=== PATIENT | male | born 1985 | race Caucasian/White ===

== ENCOUNTER 2018-05-11 15:40 | Emergency (ER) | payer OTHER ==
--- NOTE | 2018-05-11 17:01 | ER ---
Nurse's Notes [facility] Name: Manoj Jensen Jr Age: 32 yrs Sex: Male : 1985 Arrival Date: 05/11/2018 Time: 15:43 Bed Treatment Private MD: None, None Diagnosis: Pain in right knee Presentation: 05/11 16:28 Presenting complaint: Patient states: Right knee pain x 10 days, had x-rays done here 2 jl7 days and needs to know what the results are. Transition of care: patient was not received from another setting of care. Onset of symptoms was April 30, 2018. Risk Assessment: Do you want to hurt yourself or someone else? Patient reports no desire to harm self or others. Initial Sepsis Screen: Does the patient meet any 2 criteria? No. Patient's initial sepsis screen is negative. Does the patient have a suspected source of infection? No. Patient's initial sepsis screen is negative. Care prior to arrival: None. 16:28 Method Of Arrival: Ambulatory [facility] 16:28 Acuity: LUIS EDUARDO 4 jl7 Triage Assessment: 16:31 General: Appears in no apparent distress. uncomfortable, Behavior is calm, cooperative, jl7 appropriate for age. Pain: Complains of pain in right knee Pain does not radiate. Pain currently is 3 out of 10 on a pain scale. Historical: - Allergies: 16:31 No Known Allergies; jl7 - Home Meds: 16:31 Lisinopril Oral [Active]; jl7 - PMHx: 16:31 Hypertension; jl7 - PSHx: 16:31 right knee; jl7 - Immunization history:: Adult Immunizations up to date. - Social history:: Smoking status: Patient uses tobacco products, smokes one pack cigarettes per day. - Ebola Screening: : No symptoms or risks identified at this time. Screenin:59 Abuse screen: Denies threats or abuse. Denies injuries from another. Nutritional iw screening: No deficits noted. Tuberculosis screening: No symptoms or risk factors identified. Fall Risk None identified. Assessment: 16:35 General: Appears in no apparent distress. Behavior is calm, cooperative. Neuro: Level iw of Consciousness is awake, alert, obeys commands. Vital Signs: 16:31 BP 128 / 81; Pulse 78; Resp 16 S; Temp 98.8(O); Pulse Ox 97% on R/A; Weight 125.65 kg jl7 (R); Height 5 ft. 8 in. (172.72 cm) (R); Pain 3/10; 16:31 Body Mass Index 42.12 (125.65 kg, 172.72 cm) jl7 ED Course: 15:43 Patient arrived in ED. mr 15:43 None, None is Private Physician. mr 16:30 Triage completed. jl7 16:31 Arm band placed on left wrist. jl7 16:42 Nataliya Capps, RN is Primary Nurse. iw 16:45 Murray Colon PA is PHCP. cp 16:45 Smith Aburto MD is Attending Physician. cp 16:59 No provider procedures requiring assistance completed. Patient did not have IV access iw during this emergency room visit. 17:00 Kade Quiroga MD is Referral Physician. cp 17:00 Patient has correct armband on for positive identification. iw Administered Medications: No medications were administered Outcome: 16:59 Medical screen evaluation completed per provider. Patient declined treatment. iw 16:59 Following a medical screening exam, the patient was provided information regarding iw alternative care sites and resources available per registration personnel. 16:59 Condition: good iw 17:00 Discharge ordered by . cp 17:15 Patient left the ED. iw Signatures: Shivani Chacon mr Nataliya Capps, RN RN iw Murray Colon PA PA cp Leal, Jahala, RN RN jl7
--- NOTE | 2018-05-11 17:01 | EDPHYS ---
Physician Documentation [facility] Name: Manoj Jensen Jr Age: 32 yrs Sex: Male : 1985 Arrival Date: 05/11/2018 Time: 15:43 Bed Treatment Private MD: None, None ED Physician Smith Aburto HPI: 05/11 16:53 This 32 yrs old Male presents to ER via Ambulatory with complaints of Knee cp Pain. 16:54 The patient presents with pain, that is chronic. The complaints affect the medial cp aspect of right knee. Onset: The symptoms/episode began/occurred gradually, and became worse 10 day(s) ago. Modifying factors: the symptoms are aggravated by weight bearing. Associated signs and symptoms: Pertinent negatives calf tenderness, fever, numbness, swelling, warmth. Patient reports having xrays performed 2 days ago that were ordered by DR Copeland. Historical: - Allergies: 16:31 No Known Allergies; jl7 - Home Meds: 16:31 Lisinopril Oral [Active]; jl7 - PMHx: 16:31 Hypertension; jl7 - PSHx: 16:31 right knee; jl7 - Immunization history:: Adult Immunizations up to date. - Social history:: Smoking status: Patient uses tobacco products, smokes one pack cigarettes per day. - Ebola Screening: : No symptoms or risks identified at this time. ROS: 16:55 Eyes: Negative for injury, pain, redness, and discharge. cp 16:55 Constitutional: Negative for body aches, chills, fever, poor PO intake. 16:55 ENT: Negative for drainage from ear(s), ear pain, sore throat, difficulty swallowing, difficulty handling secretions. 16:55 Cardiovascular: Negative for chest pain, edema. 16:55 Respiratory: Negative for cough, shortness of breath, wheezing. 16:55 Abdomen/GI: Negative for abdominal pain, nausea, vomiting, and diarrhea. 16:55 Back: Negative for pain at rest, pain with movement, radiated pain. 16:55 MS/extremity: Positive for pain, tenderness, of the medial aspect of right knee. 16:55 Skin: Negative for cellulitis, rash. 16:55 All other systems are negative. Exam: 16:57 Head/Face: Normocephalic, atraumatic. cp 16:57 Constitutional: The patient appears in no acute distress, alert, awake, non-toxic, well developed, well nourished, obese. 16:57 Eyes: Periorbital structures: appear normal, Conjunctiva: normal, no exudate, no injection, Lids and lashes: appear normal, bilaterally. 16:57 ENT: External ear(s): are unremarkable, Nose: is normal, Mouth: Lips: moist, Oral mucosa: moist, Voice: is normal. 16:57 Chest/axilla: Inspection: normal. 16:57 Cardiovascular: Rate: normal. 16:57 Respiratory: the patient does not display signs of respiratory distress, Respirations: normal, no use of accessory muscles, no retractions, no splinting, no tachypnea. 16:57 Abdomen/GI: Exam negative for discomfort, distension, guarding, Inspection: obese 16:57 Back: pain, is absent, ROM is normal. 16:57 Musculoskeletal/extremity: Extremities: grossly normal except: noted in the medial aspect of right knee: pain, There is no evidence of decreased ROM, deformity, swelling, DVT Exam: no pain, no erythema, no increased warmth. 16:57 Skin: cellulitis, is not appreciated, no rash present. Vital Signs: 16:31 BP 128 / 81; Pulse 78; Resp 16 S; Temp 98.8(O); Pulse Ox 97% on R/A; Weight 125.65 kg jl7 (R); Height 5 ft. 8 in. (172.72 cm) (R); Pain 3/10; 16:31 Body Mass Index 42.12 (125.65 kg, 172.72 cm) jl7 MDM: 16:45 Patient medically screened. cp 16:45 Differential diagnosis: dislocation, closed fracture, tendonitis. cp 17:00 Data reviewed: vital signs, nurses notes, and as a result, I will discharge patient. cp Administered Medications: No medications were administered Disposition: 05/12 07:12 Co-signature as Attending Physician, Smith Aburto MD. rn Disposition: 05/11/18 17:00 Discharged to Home as Medical Screen. Impression: Pain in right knee. - Condition is Stable. - Medication Reconciliation Form, Thank You Letter, Antibiotic Education, Prescription Opioid Use form. - Follow up: Kade Quiroga MD; When: 2 - 3 days; Reason: Recheck today's complaints. - Problem is an ongoing problem. - Symptoms are unchanged. Signatures: Nataliya Capps RN RN iw Smith Aburto MD MD rn Page, Corey, PA PA cp Carolann Calderón RN RN jl7 Corrections: (The following items were deleted from the chart) 05/11 17:15 17:00 05/11/2018 17:00 Discharged to Home as Medical Screen. Impression: Pain in right iw knee. Condition is Stable. Forms are Medication Reconciliation Form, Thank You Letter, Antibiotic Education, Prescription Opioid Use. Follow up: Kade Quiroga; When: 2 - 3 days; Reason: Recheck today's complaints. Problem is an ongoing problem. Symptoms are unchanged. cp
== END 2018-05-11 17:15 | disposition home or self-care (01) ==
LOC: ER 15:40
DX: M25.561 Pain in right knee (principal); F17.210 Nicotine dependence, cigarettes, uncomplicated
CPT/HCPCS: 99281

== ENCOUNTER 2020-03-17 05:33 | Emergency (ER) | payer OTHER ==
[2020-03-17 07:09] VITALS: BP 144/70; O2SAT 100
--- NOTE | 2020-03-18 13:33 | RAD REPORT ---
EXAM DESCRIPTION: RAD - LEFT KNEE TWO VIEWS CLINICAL HISTORY: Slip and fall with left knee pain. COMPARISON: None. TECHNIQUE: Portable AP and lateral views of the left knee obtained. FINDINGS: No fracture, dislocation or periosteal reaction. No acute bone process. No joint space narrowing. A small to moderate joint effusion is present. No suspicious soft tissue finding. IMPRESSION: 1. Small to moderate joint effusion with no acute bone finding. 2. Concerns for internal derangement of the left knee can be addressed with MR imaging.
--- NOTE | 2020-03-23 13:02 | ER ---
Nurse's Notes [facility] Name: Manoj Jensen Jr Age: 34 yrs Sex: Male : 1985 Arrival Date: 03/17/2020 Time: 05:35 Bed 7 Private MD: Diagnosis: Pain in left knee Presentation: 03/17 05:37 Acuity: LUIS EDUARDO 4 sg 05:37 Chief complaint: Patient states: Was having a waterballoon fight with family, slid down sg in a puddle of mud, reports pain to the left knee. Reports happened around 1530 yesterday afternoon just getting worse this morning. Coronavirus screen: Proceed with normal triage. Ebola Screen: Patient negative for fever greater than or equal to 101.5 degrees Fahrenheit, and additional compatible Ebola Virus Disease symptoms Patient denies exposure to infectious person. Patient denies travel to an Ebola-affected area in the 21 days before illness onset. No symptoms or risks identified at this time. Initial Sepsis Screen: Does the patient meet any 2 criteria? No. Patient's initial sepsis screen is negative. Does the patient have a suspected source of infection? No. Patient's initial sepsis screen is negative. Risk Assessment: Do you want to hurt yourself or someone else? Patient reports no desire to harm self or others. Onset of symptoms was March 17, 2020. 05:37 Method Of Arrival: Ambulatory sg Triage Assessment: 05:49 General: Appears in no apparent distress. Behavior is calm, cooperative, appropriate ea for age. Historical: - Allergies: 05:36 Sulfa (Sulfonamide Antibiotics); sg - PMHx: 05:36 Hypertension; sg - PSHx: 05:36 right knee; sg - Immunization history:: Adult Immunizations up to date. - Social history:: Smoking status: Patient denies any tobacco usage or history of. Patient/guardian denies using alcohol, street drugs, The patient lives with family. - Family history:: not pertinent. Screenin:46 Abuse screen: Denies threats or abuse. Nutritional screening: No deficits noted. ea Tuberculosis screening: No symptoms or risk factors identified. Fall Risk None identified. Assessment: 05:46 General: Behavior is calm, cooperative, appropriate for age. Pain: Complains of pain in ea left knee. Neuro: Level of Consciousness is awake, alert, obeys commands, Oriented to person, place, time, situation. Cardiovascular: Patient's skin is warm and dry. Respiratory: Airway is patent Respiratory effort is even, unlabored, Respiratory pattern is regular, symmetrical. Derm: Skin is pink, warm \T\ dry. Musculoskeletal: Reports pain in left knee. 06:48 Reassessment: Patient and/or family updated on plan of care and expected duration. Pain ea level reassessed. Patient is alert, oriented x 3, equal unlabored respirations, skin warm/dry/pink. Awaiting on radiology results. Vital Signs: 05:37 BP 144 / 70; Pulse 88; Resp 16; Pulse Ox 100% on R/A; Weight 124.74 kg; Height 5 ft. 8 sg in. (172.72 cm); Pain 10/10; 05:37 Body Mass Index 41.81 (124.74 kg, 172.72 cm) ED Course: 05:35 Patient arrived in ED. ds1 05:36 Arm band placed on. sg 05:37 Triage completed. sg 05:39 Servando Swann RN is Primary Nurse. rv 05:42 Susy Mcrae MD is Attending Physician. ma2 05:46 Patient has correct armband on for positive identification. Bed in low position. Call ea light in reach. 06:45 Knee Left 2 View XRAY In Process Unspecified. EDMS 06:52 No provider procedures requiring assistance completed. Patient did not have IV access ea during this emergency room visit. Administered Medications: 05:52 Not Given (Patient ): Zofran (Ondansetron) 4 mg PO once ma2 Outcome: 06:52 Discharge ordered by . ma2 07:03 Patient left the ED. ea Signatures: Dispatcher [employer] EDMS Arsen Roman RN RN Lida King ds1 Lien Ross RN RN ea Alzahri, Mohammad, MD MD ma2 Servando Swann RN RN rv Corrections: (The following items were deleted from the chart) 06:18 05:37 Pulse 88bpm; Resp 16bpm; Pulse Ox 100% RA; 124.74 kg; Height 5 ft. 8 in.; BMI: sg 41.8; Pain 10/10; sg
--- NOTE | 2020-03-23 13:02 | EDPHYS ---
Physician Documentation [facility] Name: Manoj Jensen Jr Age: 34 yrs Sex: Male : 1985 Arrival Date: 03/17/2020 Time: 05:35 Bed 7 Private MD: ED Physician Susy Mcrae HPI: 03/17 05:59 This 34 yrs old Male presents to ER via Ambulatory with complaints of Knee ma2 Pain. 05:59 The patient presents with an injury. The complaints affect the medial aspect of left ma2 knee. Onset: The symptoms/episode began/occurred gradually, 1 day(s) ago. Associated signs and symptoms: Pertinent negatives nausea, rash, tingling, vomiting. Severity of symptoms: At their worst the symptoms were moderate, in the emergency department the symptoms are unchanged. The patient has not experienced similar symptoms in the past. Historical: - Allergies: 05:36 Sulfa (Sulfonamide Antibiotics); sg - PMHx: 05:36 Hypertension; sg - PSHx: 05:36 right knee; sg - Immunization history:: Adult Immunizations up to date. - Social history:: Smoking status: Patient denies any tobacco usage or history of. Patient/guardian denies using alcohol, street drugs, The patient lives with family. - Family history:: not pertinent. ROS: 05:59 Constitutional: Negative for fever, chills, and weight loss. ma2 05:59 All other systems are negative. Exam: 05:59 Constitutional: This is a well developed, well nourished patient who is awake, alert, ma2 and in no acute distress. Chest/axilla: Normal chest wall appearance and motion. Nontender with no deformity. No lesions are appreciated. Cardiovascular: Regular rate and rhythm with a normal S1 and S2. No gallops, murmurs, or rubs. Normal PMI, no JVD. No pulse deficits. Respiratory: Lungs have equal breath sounds bilaterally, clear to auscultation and percussion. No rales, rhonchi or wheezes noted. No increased work of breathing, no retractions or nasal flaring. Abdomen/GI: Soft, non-tender, with normal bowel sounds. No distension or tympany. No guarding or rebound. No evidence of tenderness throughout. MS/ Extremity: Pulses equal, no cyanosis. Neurovascular intact. Full, normal range of motion. Neuro: Awake and alert, GCS 15, oriented to person, place, time, and situation. Cranial nerves II-XII grossly intact. Motor strength 5/5 in all extremities. Sensory grossly intact. Cerebellar exam normal. Normal gait. Psych: Awake, alert, with orientation to person, place and time. Behavior, mood, and affect are within normal limits. Vital Signs: 05:37 BP 144 / 70; Pulse 88; Resp 16; Pulse Ox 100% on R/A; Weight 124.74 kg; Height 5 ft. 8 sg in. (172.72 cm); Pain 10/10; 05:37 Body Mass Index 41.81 (124.74 kg, 172.72 cm) sg MDM: 05:42 Patient medically screened. ma2 05:59 Differential diagnosis: dislocation, closed fracture, contusion, abrasion, tendonitis. ma2 Data reviewed: vital signs, nurses notes. Counseling: I had a detailed discussion with the patient and/or guardian regarding: the historical points, exam findings, and any diagnostic results supporting the discharge/admit diagnosis, the presence of at least one elevated blood pressure reading (>120/80) during this emergency department visit, the need for outpatient follow up. Response to treatment: the patient's symptoms have markedly improved after treatment. 03/17 05:43 Order name: Knee Left 2 View XRAY nc2 03/17 06:53 Order name: Knee Immobilizer; Complete Time: 07:00 ma2 03/17 06:53 Order name: Crutches; Complete Time: 07:00 ma2 Administered Medications: 05:52 Not Given (Patient ): Zofran (Ondansetron) 4 mg PO once ma2 Disposition: 03/17/20 06:52 Discharged to Home. Impression: Pain in left knee. - Condition is Fair. - Discharge Instructions: Knee Pain, [id number]. - Prescriptions for Diclofenac Sodium 75 mg Oral Tablet Sustained Release - take 1 tablet by ORAL route 2 times per day; 30 tablet. - Work release form, Medication Reconciliation Form, Thank You Letter, Antibiotic Education, Prescription Opioid Use form. - Follow up: Private Physician; When: Tomorrow; Reason: Continuance of care. Signatures: Dispatcher [employer] EDArsen Granados RN RN sg Antunez, Elena, RN RN ea [facility], Mohammad, MD MD ma2 Corrections: (The following items were deleted from the chart) 07:03 06:52 03/17/2020 06:52 Discharged to Home. Impression: Pain in left knee. Condition is ea Fair. Discharge Instructions: Knee Pain, [id number]. Prescriptions for Diclofenac Sodium 75 mg Oral Tablet Sustained Release - take 1 tablet by ORAL route 2 times per day; 30 tablet. and Forms are Medication Reconciliation Form, Thank You Letter, Antibiotic Education, Prescription Opioid Use. Follow up: Private Physician; When: Tomorrow; Reason: Continuance of care. ma2
== END 2020-03-17 07:03 | disposition home or self-care (01) ==
LOC: ER 05:33
DX: M25.562 Pain in left knee (principal); I10 Essential (primary) hypertension; Z88.2 Allergy status to sulfonamides
CPT/HCPCS: 99282

== ENCOUNTER 2025-06-13 11:24 | Day surgery (SDC) | payer BC, OTHER ==
[2025-06-12 15:02] LABS: Anion Gap 8.6 mEq/L (5.0-15.0); BUN Blood Urea Nitrogen 8.0 mg/dL (7-18); Glucose Level 99.0 mg/dL (74-106); Potassium 3.6 mEq/L (3.5-5.1)
[2025-06-13] MEDS ORDERED: LIDOCAINE HCL/EPINEPHRINE 20 ML MDV ONE (11:35)
[2025-06-13] MEDS ORDERED: ONDANSETRON 4 MG/2 ML VIAL ONE (11:39)
[2025-06-13] MEDS ORDERED: MIDAZOLAM HCL 2 MG/2 ML INJ ONE (11:39)
[2025-06-13] MEDS ORDERED: KETOROLAC 30 MG/ML INJ ONE (11:39)
[2025-06-13] MEDS ORDERED: LIDOCAINE 2% MPF 5 ML VIAL ONE (11:39)
[2025-06-13] MEDS ORDERED: FENTANYL CITR 100 MCG/2 ML ONE (11:40)
[2025-06-13] MEDS ORDERED: ROCURONIUM 50 MG/5 ML VIAL IV ONE ×2 (11:40→12:39)
[2025-06-13] MEDS ORDERED: CEFAZOLIN SODIUM 2 GM/VIAL ONE (11:44)
[2025-06-13] MEDS: Ringers Lactate 1,000 ML IV ONE (11:52)
[2025-06-13] MEDS: METHYLENE BLUE 1% 10 ML VIAL ONE (12:40)
[2025-06-13] MEDS ORDERED: SUGAMMADEX SODIUM 200 MG/2 ML VIAL IV ONE (12:47)
--- NOTE | 2025-06-13 12:47 | P.OP ---
Preoperative diagnosis: Pilonidal Cyst with Abscess Postoperative diagnosis: Pilonidal Cyst with Abscess Primary procedure: Excisional Debridement of Pilonidal Cyst with Abscess Anesthesia: GETA Estimated blood loss: <5cc Specimen: Cultures, Debridement Tissue Findings: ~ 2cm x 3cm x 2cm Complications: None Transferred to: Recovery Room Condition: Good
[2025-06-13] MEDS: ALBUTEROL 2.5 MG/3 ML NEB SOL ONE (13:17)
[2025-06-13] MEDS: HYDROMORPHONE HCL 0.5 MG/0.5 ML INJ ONE (13:28)
[2025-06-13] MEDS: PROMETHAZINE INJ 25 MG/ML AMP ONE (13:32)
[2025-06-13] MEDS: HYDROCODONE/APAP 10/325 TAB PO ONE (13:55)
[2025-06-13] MEDS ORDERED: HYDROCODONE/APAP 10/325 TAB ONE (13:56)
--- NOTE | 2025-06-13 14:02 | OP ---
Date of Procedure: 06/13/2025 Surgeon: Roverto Ragland MD, Preoperative Diagnosis: Pilonidal cyst with abscess. Postoperative Diagnosis: Pilonidal cyst with abscess. Procedure Performed: Excisional debridement of pilonidal cyst with abscess. Anesthesia: General endotracheal. Estimated Blood Loss: Less than 5 cc. Specimens: Culture sent for both aerobic and anaerobic speciation, and debridement of tissue. Findings: Approximately 2 cm x 3 cm x 2 cm defect. Complications: None. Disposition: Patient transferred to recovery room in good condition. Procedure In Detail: After informed consent was obtained, the patient was brought to the operating r oom, prepped and draped in the usual sterile fashion. After adequate anesthesia was achieved, I inje cted an area of the pilonidal cyst with methylene blue. At this point, I made an elliptical incision following down to the subcutaneous tissues with a 15 blade. I then encountered the abscess cavity w hich was cultured for both aerobic and anaerobic speciation. The abscess material was suctioned out in its entirety. The cavity was unroofed and all nonviable tissue was removed following the blue tra ct of dye. At this point, after all nonviable tissue was removed, the area was copiously irrigated. Hemostasis was achieved with electrocautery. The wound was then packed with Vashe soaked Kerlix and a sterile dressing placed over top. The patient tolerated the procedure without incident or complication, was transferred to PACU in good condition. All counts were correct at the end of the case. LORY/ANURADHA Voice ID: [id number] Report ID: [id number]
[2025-06-13 15:12] VITALS: BP 118/56; TEMP 97.8; O2SAT 98
== END 2025-06-13 14:30 | disposition home or self-care (01) ==
LOC: OR 11:24
PROVIDERS: ATTEND Surgery
PROC: 0JB90ZZ Excision of Buttock Subcutaneous Tissue and Fascia, Open Approach (ICD-10-PCS; principal; 2025-06-13 13:00)
DX: L05.02 Pilonidal sinus with abscess (principal)
CPT/HCPCS: 93005; 87070; 80048; 36415; 87205; 88304; 87075; 11770; J2550; J2704; J7613; J2003; J2250; J3010; J1100; J1171; J2405; J7120